=== PATIENT | female | born 1965 | race African-American/Black ===

== ENCOUNTER 2016-07-31 13:35 | Emergency (ER) | payer MEDICARE, MEDICAID ==
[2016-07-31 13:48] VITALS: BP 115/76
== END 2016-07-31 15:44 | disposition left against medical advice (07) ==
LOC: ED 13:35
DX: R10.9 Unspecified abdominal pain (principal); Z53.20 Procedure and treatment not carried out because of patient's decision for unspecified reasons
CPT/HCPCS: 99282

== ENCOUNTER 2017-05-05 17:35 | Emergency (ER) | payer MEDICARE, MEDICAID ==
[2017-05-05 20:05] VITALS: BP 104/55
== END 2017-05-05 20:47 | disposition left against medical advice (07) ==
LOC: ED 17:35
DX: R10.9 Unspecified abdominal pain (principal); Z53.21 Procedure and treatment not carried out due to patient leaving prior to being seen by health care provider